=== PATIENT | male | born 2000 | race African-American/Black ===

== ENCOUNTER 2020-03-26 18:55 | Emergency (ER) | payer BC | END 2020-03-26 19:11 | disposition home or self-care (01) | LOC: JVIRT 18:55 | DX: Z03.818 Encounter for observation for suspected exposure to other biological agents ruled out (principal) | CPT/HCPCS: C9803; Q3014-GT; U0003 ==

== ENCOUNTER 2020-12-30 11:03 | Emergency (ER) | payer BC ==
[2020-12-30 11:14] VITALS: BP 122/85; PULSE 111; TEMP 97.6; BMI 20.1
[2020-12-30] MEDS ORDERED: MAG HYDROX/AL HYDROX/SIMETH -MYLANTA- ORAL SUSPENSION PO ONE (11:17)
[2020-12-30] MEDS ORDERED: SODIUM CHLORIDE 0.9% 500 ML INFUS.BAG IV ONE (11:18)
[2020-12-30] MEDS ORDERED: FAMOTIDINE 20 MG/50 ML IVPB 20 MG/50 ML MG IVPB ONE ×2 (11:18→11:23)
[2020-12-30] MEDS ORDERED: MAG HYDROX/AL HYDROX/SIMETH 30 ML UNIT-DOSE CUP ONE (11:24)
[2020-12-30 12:08] LABS: CALCIUM 9.7 mg/dl (8.5-10)
[2020-12-30 12:12] LABS: ALBUMIN 4.7 g/dl (3.4-5.0); BILIRUBIN,TOTAL 0.8 mg/dl (0.2-1); TOT PROT 8.1 g/dl (6.4-8.2)
[2020-12-30 12:17] LABS: BASO % 4.3 % (0-2.0); EOS % 0.7 % (0-4.5); HEMATOCRIT 43.9 % (35.4-49); HEMOGLOBIN 14.9 GM/dl (11.7-16.9); LYMPH % 22.9 % (8-40); MCH 30.3 pg (25.7-33.7); MCHC 34.1 g/dl (32.0-35.9); MEAN PLT VOLUME 8.3 fl (7.5-11.1); MONO % 6.9 % (3.8-10.2); NEUT % 65.2 % (42.8-82.8); PLATELET COUNT 320 10^3/uL (134-434); RBC 4.93 M/mm3 (4.00-5.60); RDW 11.2 % (11.9-15.9); WHITE BLOOD COUNT 6.2 K/mm3 (4.0-10.8)
== END 2020-12-30 14:06 | disposition home or self-care (01) ==
LOC: FER 11:03
PROC: 3E033NZ Introduction of Analgesics, Hypnotics, Sedatives into Peripheral Vein, Percutaneous Approach (ICD-10-PCS; principal; 2020-12-30)
DX: R10.13 Epigastric pain (principal)
CPT/HCPCS: 36415; 71046-TC-FY; 80053; 83690; 85025; 93005; 99284-25

== ENCOUNTER 2024-06-19 17:07 | Emergency (ER) | payer OTHER, BC ==
[2024-06-19 17:23] VITALS: BP 124/81; PULSE 91; RESP 18; TEMP 98.1; BMI 21.9
[2024-06-19] MEDS ORDERED: LIDOCAINE 5% TOPICAL PATCH ONE (17:29)
[2024-06-19] MEDS ORDERED: ACETAMINOPHEN 500 MG TABLET (FP) ONE (17:29)
[2024-06-19] MEDS ORDERED: IBUPROFEN 400 MG TABLET (FP) PO ONE (17:29)
[2024-06-19] MEDS: IBUPROFEN 400 MG TABLET (FP) PO ONE (17:39)
[2024-06-19] MEDS: LIDOCAINE 5% TOPICAL PATCH TP ONE (17:39)
[2024-06-19] MEDS: ACETAMINOPHEN 500 MG TABLET (FP) PO ONE (17:41)
[2024-06-19] MEDS ORDERED: LIDOCAINE PATCH REMOVAL MC SCH (22:00)
== END 2024-06-19 17:46 | disposition home or self-care (01) ==
LOC: FER 17:07
DX: M54.50 Low back pain, unspecified (principal); R20.0 Anesthesia of skin; R32 Unspecified urinary incontinence
CPT/HCPCS: 99283-25